=== PATIENT | female | born 1970 | race Caucasian/White ===

== ENCOUNTER 2021-06-14 08:56 | Outpatient (CLI) | payer BC | END 2021-06-14 08:57 | disposition home or self-care (01) | LOC: CSHLAB 08:56 | PROVIDERS: ATTEND Student in an Organized Health Care Education/Training Program | DX: Z01.812 Encounter for preprocedural laboratory examination (principal); Z20.822 Contact with and (suspected) exposure to COVID-19; N92.0 Excessive and frequent menstruation with regular cycle; Z53.9 Procedure and treatment not carried out, unspecified reason | CPT/HCPCS: 84703; 85027; 86850; 86900; 86901; U0003; U0005 ==

== ENCOUNTER 2021-06-19 08:22 | Day surgery (SDC) | payer BC ==
[2021-06-14 09:55] LABS: Hemoglobin 13.6 g/dL (12.0-15.5); Mean Corpuscular HGB CONC 32.7 g/dL (32.0-36.0); Mean Corpuscular Hemoglobin 31.3 pg (27.0-33.0); Mean Corpuscular Volume 95.9 fl (81.6-98.3); Mean Platelet Volume 9.3 fl (7.4-10.4); Platelet Count 369 10x3/uL (150-450); RBC Distribution Width 13.2 % (11.5-14.5); Red Blood Cell (RBC) Count 4.34 10x6/uL (3.90-5.03); White Blood Cell (WBC) Count 6.5 10x3/uL (3.5-10.5)
[2021-06-14 09:59] LABS: BHCG - Serum Negative (NEGATIVE); Pregs Control Background? CLEAR/WHITE (CLR/WHITE); Pregs Control Bar Appear? YES (CONTROL BAR)
[2021-06-14 22:06] LABS: SARS-CoV-2 PCR by NAA Not Detected (NotDetected)
[2021-06-15 13:57] VITALS: BMI 25.8
[2021-06-19] MEDS ORDERED: Gabapentin 300 MG CAP ONE (08:36)
[2021-06-19] MEDS ORDERED: CeleCOXIB 100 MG CAP ONE (08:36)
[2021-06-19] MEDS ORDERED: Lidocaine 1% MPF 2 ML VIAL ONE (08:36)
[2021-06-19] MEDS ORDERED: Famotidine/PF 20 mg/2ml Vial ONE (08:37)
[2021-06-19] MEDS ORDERED: Midazolam HCl 2 mg/2 ml Vial ONE (10:20)
[2021-06-19] MEDS ORDERED: EPINEPHrine 1 MG/ML AMP ONE (11:47)
[2021-06-19] MEDS ORDERED: Bupivacaine PF 0.5% 30 ML VIAL ONE (11:47)
[2021-06-19] MEDS ORDERED: Fentanyl 250 MCG/5 ML VIAL ONE (11:57)
[2021-06-19] MEDS ORDERED: Promethazine HCl 25 MG/ML VIAL ONE (11:57)
[2021-06-19] MEDS ORDERED: Ondansetron PF 4 MG/2 ML Vial ONE (11:58)
[2021-06-19] MEDS ORDERED: Dexamethasone 4 mg/ml Vial ONE (11:59)
[2021-06-19] MEDS ORDERED: Rocuronium Bromide 10 MG/ML (10ML VIAL) ONE (11:59)
[2021-06-19] MEDS ORDERED: Lidocaine 2% PF 5 ML VIAL ONE (11:59)
[2021-06-19] MEDS ORDERED: ePHEDrine Sulfate 50 MG/10 ML VIAL ONE (12:46)
[2021-06-19] MEDS ORDERED: PHENYLEPHRINE-NS 100 MCG/ML 10 ML SYRINGE ONE (12:54)
[2021-06-19] MEDS ORDERED: PROPOFOL 0 ML ONE (13:34)
[2021-06-19] MEDS ORDERED: PROPOFOL 20 ML ONE (13:35)
[2021-06-19] MEDS ORDERED: Ketorolac Tromethamine 30 MG/ML VIAL ONE (13:37)
== END 2021-06-19 16:48 | disposition home or self-care (01) ==
LOC: CSHSDC 08:22
PROVIDERS: ATTEND Student in an Organized Health Care Education/Training Program
PROC: 0UT94ZZ Resection of Uterus, Percutaneous Endoscopic Approach (ICD-10-PCS; principal; 2021-06-19)
PROC: 0U544ZZ Destruction of Uterine Supporting Structure, Percutaneous Endoscopic Approach (ICD-10-PCS; principal; 2021-06-19)
PROC: 0UT74ZZ Resection of Bilateral Fallopian Tubes, Percutaneous Endoscopic Approach (ICD-10-PCS; principal; 2021-06-19)
DX: N80.3 Endometriosis of pelvic peritoneum (principal); N73.6 Female pelvic peritoneal adhesions (postinfective); G43.909 Migraine, unspecified, not intractable, without status migrainosus; E28.2 Polycystic ovarian syndrome; Z79.899 Other long term (current) drug therapy; Z88.2 Allergy status to sulfonamides; Z98.84 Bariatric surgery status; Z20.822 Contact with and (suspected) exposure to COVID-19
CPT/HCPCS: 36415; 84703; 85027; 86850; 86900; 86901; 88305; 88307; J0171; J0690; J1100; J1885; J2001; J2250; J2405; J2550; J2704; J3010; S0020; S0028; U0003; U0005

== ENCOUNTER 2022-02-14 08:18 | Outpatient (CLI) | payer BC | END 2022-02-14 08:19 | disposition home or self-care (01) | LOC: CSHULT 08:18 | PROVIDERS: ATTEND Physician Assistant Medical | DX: R11.2 Nausea with vomiting, unspecified (principal); K30 Functional dyspepsia; K44.9 Diaphragmatic hernia without obstruction or gangrene | CPT/HCPCS: 76705 ==

== ENCOUNTER 2023-02-17 13:35 | Outpatient (CLI) | payer BC | END 2023-02-17 13:36 | disposition home or self-care (01) | LOC: CSHRAD 13:35 | PROVIDERS: ATTEND Physician Assistant Medical | DX: R11.2 Nausea with vomiting, unspecified (principal); R13.10 Dysphagia, unspecified; K44.9 Diaphragmatic hernia without obstruction or gangrene | CPT/HCPCS: 74220 ==

== ENCOUNTER 2024-07-26 10:30 | Outpatient (CLI) | payer BC | END 2024-07-26 10:31 | disposition home or self-care (01) | LOC: CSHRAD 10:30 | PROVIDERS: ATTEND Surgery | DX: R13.19 Other dysphagia (principal); K44.9 Diaphragmatic hernia without obstruction or gangrene; K21.9 Gastro-esophageal reflux disease without esophagitis | CPT/HCPCS: 74220 ==